=== PATIENT | female | born 1960 | race Caucasian/White ===

== ENCOUNTER 2018-10-18 10:11 | Emergency (ER) | payer OTHER ==
[~2018-10-18] VITALS: Ht 160 cm; Wt 90.7 kg
[~2018-10-18 10:11] MED LIST: LORA-258 PO; VALS160T2 PO
[2018-10-18] MEDS ORDERED: IBUPROFEN 600 MG TABLET PO ONE ×2 (10:30→10:38)
--- NOTE | 2018-10-18 10:41 | NUR ---
patient BIB daughter c/p worsening right thigh pain x 1 wee. On room air, breathing evenly and unlabored. connected to the monitor and pulse ox. precision agriculture technician at bedside for exam. Kept comfortable, will continue to monitor accordingly.
[2018-10-18 11:09] VITALS: BP 130/84
--- NOTE | 2018-10-18 11:10 | NUR ---
Patient discharged to home in stable condition. Written and verbal after care instructions given. Patient verbalizes understanding of instruction. Prescription given and health teaaching, patient and daughter able to understand instructions.
== END 2018-10-18 11:09 | disposition home or self-care (01) ==
LOC: ER 10:15
DX: M79.604 Pain in right leg (principal); I10 Essential (primary) hypertension; Z90.49 Acquired absence of other specified parts of digestive tract; Z79.899 Other long term (current) drug therapy
CPT/HCPCS: 73552; 93971-TC

== ENCOUNTER 2019-04-07 08:30 | Emergency (ER) | payer OTHER ==
[~2019-04-07] VITALS: Ht 157.5 cm; Wt 109.3 kg
--- NOTE | 2019-04-07 08:45 | NUR ---
CAME IN FOR R SHOULDER, L RIB AREA PAIN S/P GLF 04/03/19, TO ER BED 9, HOOKED TO MONITOR, CHANGED TO HOSP [facility], AWAITING MD CONNOLLY
--- NOTE | 2019-04-07 08:52 | NUR ---
DR PINEDA AT BEDSIDE
--- NOTE | 2019-04-07 09:00 | NUR ---
patient wheeled out via gurney for CT scan
[2019-04-07] MEDS ORDERED: IBUPROFEN 400 MG TABLET ONE (09:54)
[2019-04-07] MEDS ORDERED: ACETAMINOPHEN ES 500 MG TABLET ONE (09:54)
[2019-04-07] MEDS: IBUPROFEN 400 MG TABLET PO ONE (09:58)
[2019-04-07] MEDS: ACETAMINOPHEN 325 MG TABLET PO ONE (09:58)
--- NOTE | 2019-04-07 10:18 | NUR ---
Patient discharged to home in stable condition. Written and verbal after care instructions given. Patient verbalizes understanding of instruction.
[2019-04-07 10:20] VITALS: BP 114/83
== END 2019-04-07 10:20 | disposition home or self-care (01) ==
LOC: ER 08:30
DX: S20.212A Contusion of left front wall of thorax, initial encounter (principal); M24.811 Other specific joint derangements of right shoulder, not elsewhere classified; I10 Essential (primary) hypertension; Z90.49 Acquired absence of other specified parts of digestive tract; Z79.899 Other long term (current) drug therapy; W10.8XXA Fall (on) (from) other stairs and steps, initial encounter; Y93.89 Activity, other specified; Y92.89 Other specified places as the place of occurrence of the external cause; Y99.8 Other external cause status
CPT/HCPCS: 71045-TC; 73030-TC